=== PATIENT | female | born 1985 | race Caucasian/White ===

== ENCOUNTER 2022-04-20 05:53 | Emergency (ER) | payer OTHER ==
[~2022-04-20] VITALS: Ht 157.5 cm; Wt 70.8 kg
[2022-04-20 05:55] VITALS: BP_SYST 126; BP_SYST 171; BP_DIAS 76; BP_DIAS 80
--- NOTE | 2022-04-20 06:10 | NUR ---
TO BED AMBULATORY
--- NOTE | 2022-04-20 06:14 | NUR ---
Patient BIB by family from home. C/O vaginal bleeding x today. Patient reported, had vaginal bleeding today, LMP 03/11/22, Per patient - tested pregnency positive (home kit).
--- NOTE | 2022-04-20 06:44 | NUR ---
Patient being evaluated by physician at bedside.
[2022-04-20 07:48] LABS: APPEARANCE,URINE SL CLOUDY (CLEAR); BILIRUBIN,URINE NEGATIVE (NEGATIVE); BLOOD, URINE 3+ (NEGATIVE); COLOR,URINE AMBER (YELLOW); LEUKOCYTE ESTERASE ,URINE NEGATIVE (NEGATIVE); NITRITE, URINE NEGATIVE (NEGATIVE); UGLUCOSE NEGATIVE (NEGATIVE)
[2022-04-20 08:06] LABS: RBC,URINE 50-80 /HPF (0-5); WBC,URINE 0-5 /HPF (0-5)
[2022-04-20 08:36] LABS: BASOPHILS % (AUTO) 0.3 % (0.0-2.0); EOSINOPHILS # (AUTO) 0.1 K/uL (0-0.4); HEMATOCRIT 43.9 % (36-48); HEMOGLOBIN 14.8 g/dL (12.0-16.0); LYMPHOCYTES # (AUTO) 1.5 K/uL (2.5-16.5); LYMPHOCYTES % (AUTO) 15.1 % (20.5-51.1); MEAN CORPUSCULAR HEMOGLOBIN 31 pg (27-31); MEAN CORPUSCULAR HGB CONC 34 g/dL (33-37); MEAN CORPUSCULAR VOLUME 92.4 fL (80-94); MONOCYTES # (AUTO) 0.6 K/uL (0.8-1.0); MONOCYTES % (AUTO) 6.4 % (1.7-9.3); NEUTROPHILS # (AUTO) 7.7 K/uL (1.8-7.7); NEUTROPHILS % (AUTO) 77.2 % (42.2-75.2); PLATELET COUNT (AUTO) 234 K/uL (140-450); RED BLOOD CELL COUNT(AUTO) 4.75 MIL/uL (4.20-5.40); RED CELL DISTRIBUTION WIDTH 13.7 % (11.6-13.7)
[2022-04-20 09:42] VITALS: BP 126/80
--- NOTE | 2022-04-20 09:42 | NUR ---
Patient discharged with v/s stable. Written and verbal after care instructions given and explained. Patient verbalized understanding. Ambulatory with steady gait. All questions addressed prior to discharge. Advised to follow up with PMD.
== END 2022-04-20 09:42 | disposition home or self-care (01) ==
LOC: MED 05:53
DX: N93.9 Abnormal uterine and vaginal bleeding, unspecified (principal); J45.909 Unspecified asthma, uncomplicated; Z90.89 Acquired absence of other organs
CPT/HCPCS: 36415; 76817; 81001; 81025; 84702; 85025; 86900; 86901; 87086; 99284; Q0092